=== PATIENT | male | born 1990 | race African-American/Black ===

== ENCOUNTER 2025-02-07 08:29 | Emergency (ER) | payer SELFPAY ==
[2025-02-07 09:07] LABS: BASOPHILS ABSOLUTE AUTO 0.03 K/uL (0.00-0.20); BASOPHILS PERCENT AUTO 0.7 % (0.0-1.0); EOSINOPHILS ABSOLUTE AUTO 0.74 K/uL (0.00-0.45); EOSINOPHILS PERCENT AUTO 16.2 % (0.0-6.0); IMMATURE GRAN ABSOLUTE AUTO 0.00 K/uL (0.00-0.05); IMMATURE GRAN PERCENT AUTO 0.0 % (0.0-0.4); LYMPHOCYTES ABSOLUTE AUTO 2.21 K/uL (1.00-4.80); LYMPHOCYTES PERCENT AUTO 48.3 % (24.0-44.0); MEAN PLATELET VOLUME 11.1 fL (9.4-12.4); MONOCYTES ABSOLUTE AUTO 0.37 K/uL (0.00-0.80); MONOCYTES PERCENT AUTO 8.1 % (0.0-8.0); NEUTROPHILS ABSOLUTE AUTO 1.23 K/uL (1.80-7.70); NEUTROPHILS PERCENT AUTO 26.7 % (41.0-71.0); NRBC ABSOLUTE 0.00 K/uL (0.00-0.02); NRBC PERCENT 0.0 /100WBC (0.0-0.2); PLATELET COUNT,PLT 122 K/uL (150-400); RED BLOOD CELL COUNT 5.39 M/uL (4.52-5.90); WHITE BLOOD CELL COUNT,WBC 4.58 K/uL (3.9-11.3)
[2025-02-07 09:35] LABS: GLUCOSE,URINE NEGATIVE (NEGATIVE); OCCULT BLOOD,URINE MODERATE (NEGATIVE)
[2025-02-07 09:38] LABS: APPEARANCE,URINE HAZY
[2025-02-07 09:48] LABS: EPITHELIAL CELLS,URINE OCCASIONAL (NONE-FEW)
[2025-02-07 09:56] LABS: A/G RATIO 0.8 (0.9-1.6); ALANINE AMINOTRANSFERASE,ALT 78.0 IU/L (14-63); ASPARTATE AMNIOTRANSFERASE,AST 58.0 IU/L (15-37); BILIRUBIN TOTAL 0.7 mg/dL (0.2-1.0); BLOOD UREA NITROGEN,BUN 9.0 mg/dL (7.0-18.0); CARBON DIOXIDE,CO2 28.7 mmol/L (21.0-32.0); CHLORIDE,CL 103.0 mmol/L (98-107); CREATININE 1.4 mg/dL (0.8-1.3); EST CRCL DRUG DOSING (CG) 79.69 mL/min; GLUCOSE RANDOM 101.0 mg/dL (74-106); POTASSIUM,K 4.4 mmol/L (3.5-5.1); PROTEIN TOTAL,TP 7.8 g/dL (6.4-8.2); SODIUM,NA 140.0 mmol/L (136-148)
[2025-02-07 09:57] LABS: ESTIMATED GFR 67.0 mL/min (>60)
== END 2025-02-07 11:13 | disposition home or self-care (01) ==
LOC: MW.ED 08:29
DX: K74.60 Unspecified cirrhosis of liver (principal); N20.0 Calculus of kidney; Z75.3 Unavailability and inaccessibility of health-care facilities
CPT/HCPCS: 36415; 71045; 71045-26; 74176; 74176-26; 80053; 81001; 83690; 85025; 99283; 99284